=== PATIENT | female | born 1965 | race Caucasian/White ===

== ENCOUNTER 2018-10-15 16:26 | Emergency (ER) | payer MEDICARE, MEDICAID ==
[~2018-10-15] VITALS: Ht 170.2 cm; Wt 89.0 kg
[2018-10-15 17:54] VITALS: BP 101/64
== END 2018-10-15 16:55 | disposition left against medical advice (07) ==
LOC: ER 16:26
DX: N94.9 Unspecified condition associated with female genital organs and menstrual cycle (principal); Z53.21 Procedure and treatment not carried out due to patient leaving prior to being seen by health care provider

== ENCOUNTER 2019-03-12 12:40 | Emergency (ER) | payer MEDICARE, MEDICAID ==
[~2019-03-12] VITALS: Ht 165.1 cm; Wt 113.0 kg
[2019-03-12 12:47] VITALS: BP 128/64
== END 2019-03-12 16:22 | disposition left against medical advice (07) ==
LOC: ER 12:40
DX: M79.18 Myalgia, other site (principal); Z53.21 Procedure and treatment not carried out due to patient leaving prior to being seen by health care provider

== ENCOUNTER 2019-10-15 21:01 | Emergency (ER) | payer MEDICARE, MEDICAID ==
[~2019-10-15] VITALS: Ht 170.2 cm; Wt 112.0 kg
[2019-10-15 22:01] VITALS: BP 119/69
[2019-10-15] MEDS ORDERED: ACETAMINOPHEN 325MG TABLET PO STA (22:50)
[2019-10-16] MEDS ORDERED: HYDROCODONE/ACETAMINOPHEN 5/325MG TABLET PO STA (00:02)
[2019-10-16] MEDS ORDERED: IBUPROFEN 600MG TABLET PO STA (00:02)
== END 2019-10-16 01:55 | disposition left against medical advice (07) ==
LOC: ER 21:01
DX: S89.92XA Unspecified injury of left lower leg, initial encounter (principal); S09.90XA Unspecified injury of head, initial encounter; F90.9 Attention-deficit hyperactivity disorder, unspecified type; J44.9 Chronic obstructive pulmonary disease, unspecified; W13.1XXA Fall from, out of or through bridge, initial encounter; Y93.89 Activity, other specified; Y92.89 Other specified places as the place of occurrence of the external cause; Y99.8 Other external cause status
CPT/HCPCS: 72170; 99284

== ENCOUNTER 2019-12-25 12:15 | Emergency (ER) | payer MEDICARE, MEDICAID ==
[~2019-12-25] VITALS: Ht 170.2 cm; Wt 116.0 kg
[2019-12-25 12:58] VITALS: BP 127/79
[2019-12-25] MEDS ORDERED: IBUPROFEN 600MG TABLET PO ONE (13:30)
== END 2019-12-25 13:59 | disposition home or self-care (01) ==
LOC: ER 12:15
DX: L02.414 Cutaneous abscess of left upper limb (principal); J44.9 Chronic obstructive pulmonary disease, unspecified; E78.00 Pure hypercholesterolemia, unspecified
CPT/HCPCS: 99282

== ENCOUNTER 2019-12-30 11:29 | Emergency (ER) | payer MEDICARE, MEDICAID ==
[~2019-12-30] VITALS: Ht 172.7 cm; Wt 100.0 kg
[2019-12-30 11:42] VITALS: BP 135/61
== END 2019-12-30 13:14 | disposition home or self-care (01) ==
LOC: ER 11:29
DX: S81.811D Laceration without foreign body, right lower leg, subsequent encounter (principal); J44.9 Chronic obstructive pulmonary disease, unspecified; E78.00 Pure hypercholesterolemia, unspecified; Z88.0 Allergy status to penicillin; X58.XXXD Exposure to other specified factors, subsequent encounter
CPT/HCPCS: 99283

== ENCOUNTER 2020-05-21 13:25 | Emergency (ER) | payer MEDICAID, MEDICARE, OTHER ==
[~2020-05-21] VITALS: Ht 170.2 cm; Wt 100.0 kg
[2020-05-21] MEDS ORDERED: ACETAMINOPHEN 325MG TABLET PO ONE (14:00)
[2020-05-21 14:39] VITALS: BP 107/57
== END 2020-05-21 16:26 | disposition home or self-care (01) ==
LOC: ER 13:25
DX: S09.8XXA Other specified injuries of head, initial encounter (principal); Y08.89XA Assault by other specified means, initial encounter; Y93.89 Activity, other specified; Y92.89 Other specified places as the place of occurrence of the external cause; Y99.8 Other external cause status; J44.9 Chronic obstructive pulmonary disease, unspecified; E78.00 Pure hypercholesterolemia, unspecified; Z88.0 Allergy status to penicillin
CPT/HCPCS: 70450; 87635; 99284; C9803

== ENCOUNTER 2020-08-12 07:22 | Emergency (ER) | payer MEDICARE, MEDICAID | END 2020-08-12 09:40 | disposition left against medical advice (07) | LOC: ER 07:53 | DX: Z53.21 Procedure and treatment not carried out due to patient leaving prior to being seen by health care provider (principal); Z88.0 Allergy status to penicillin ==

== ENCOUNTER 2020-08-12 07:38 | Emergency (ER) | payer MEDICARE, MEDICAID ==
[~2020-08-12] VITALS: Ht 162.6 cm; Wt 110.0 kg
[2020-08-12 08:59] VITALS: BP 130/78
== END 2020-08-12 08:55 | disposition home or self-care (01) ==
LOC: ER 07:38
DX: Z76.0 Encounter for issue of repeat prescription (principal); J44.9 Chronic obstructive pulmonary disease, unspecified; E78.00 Pure hypercholesterolemia, unspecified; F39 Unspecified mood [affective] disorder; Z88.0 Allergy status to penicillin; Z87.820 Personal history of traumatic brain injury
CPT/HCPCS: 99283